=== PATIENT | female | born 1960 | race Caucasian/White ===

== ENCOUNTER 2016-04-16 11:49 | Day surgery (SDC) | payer BC ==
[2016-04-16] MEDS ORDERED: LIDOCAINE 2% MDV (20MG/ML) 20ML VIAL IV ONE (14:59)
[2016-04-16] MEDS ORDERED: MIDAZOLAM HCL 2MG/2ML VIAL IV ONE (14:59)
--- NOTE | 2016-04-16 15:01 | Operative Note ---
DATE OF SURGERY: 04/16/2016. REFERRING PHYSICIAN: Marni Renner D.O. PROCEDURE: Colonoscopy to the cecum. INDICATION: Family history of colon cancer with both her brother and sister dying from the disease. She presents today for high-risk screening. Her last examination was approximately five years ago. ANESTHESIA: Intravenous sedation was administered by the Department of Anesthesiology and included Diprivan titrated to effect. PROCEDURE: Following informed consent from this alert individual, including a discussion of the risks and benefits of the procedure and an opportunity for the patient to ask questions, the patient was in the left lateral decubitus position. A digital rectal examination was performed. No abnormalities were noted. Following this, the Olympus PCF-180 video colonoscope was inserted into the rectum without resistance. The rectal mucosa had a normal appearance with normal folds and distensibility. The colonoscope was advanced up through the colon to the level of the cecum without much difficulty. Throughout the bowel, the mucosa appeared normal, the folds were normal and the bowel was fairly well distensible. The cecum was defined by noting the appendiceal orifice and ileocecal valve. From the base of the cecum, the colonoscope was then withdrawn back through the bowel re-examining the mucosa upon withdrawal. No abnormalities were detected. The colon preparation was good. Retroflexion in the rectum was endoscopically unremarkable. IMPRESSION: Unremarkable colonoscopy to the cecum. RECOMMENDATIONS: The patient was advised to have a recheck colonoscopy in five years' time for a family history of colon cancer. Follow up will be with Dr. Marni Renner. JOSE HOLDER D.O. Date Time JOB NUMBER: [id number] cc: Marni [facility] D.O. [facility]
== END 2016-04-16 13:53 | disposition home or self-care (01) ==
LOC: HOP 11:49
PROVIDERS: ATTEND Internal Medicine Gastroenterology
DX: Z12.11 Encounter for screening for malignant neoplasm of colon (principal); Z80.0 Family history of malignant neoplasm of digestive organs